=== PATIENT | male | born 1940 ===

== ENCOUNTER 2017-12-04 12:11 | Emergency (ER) | payer MEDICARE ==
[2017-12-04 12:55] VITALS: BP 148/75
[2017-12-04] MEDS ORDERED: DOXYcycline CAP(*) 100 MG PO ONE (13:12)
--- NOTE | 2017-12-04 13:12 | ED ---
Skin Complaint - HPI Summary HPI Summary: 76 y/o male presents to the urgent care c/o tick bite on his groin since this morning. tick was not engorged. he removed tick and now he has a midl red rash. Pt denies Hx of tick bites. Pt denies fever, PEREZ, SOB, chest pain, abdominal pain, Joint pains, N/v/D - History of Current Complaint Chief Complaint: UCSkin Time Seen by Provider: 12/04/17 13:10 Stated Complaint: TICK Hx Obtained From: Patient Onset/Duration: Started Hours Ago - hrs, Still Present Skin Exposure Onset/Duration: Hours Ago - 4 Timing: Constant Onset Severity: Mild Current Severity: Mild Pain Intensity: 0 Pain Scale Used: 0-10 Numeric Skin Location: Other: - groin Character: Pruritus, Redness Aggravating Symptom(s): Touch Alleviating Symptom(s): Other: - tick removable Associated Signs & Symptoms: Rash Related History: Possible Reaction to: Insect - Allergy/Home Medications Allergies/Adverse Reactions: Allergies Allergy/AdvReac Type Severity Reaction Status Date / Time No Known Allergies Allergy Verified 12/04/17 12:51 Home Medications: Home Medications Aspirin [Adult Aspirin] 81 mg PO DAILY 12/04/17 [History Confirmed 12/04/17] Losartan/Hydrochlorothiazide [Losartan-Hctz 100-12.5 mg Tab] 1 each PO DAILY 12/16 [History Confirmed 12/04/17] Rosuvastatin Calcium [Crestor] 20 mg PO DAILY 12/04/17 [History Confirmed ] PMH/Surg Hx/FS Hx/Imm Hx Previously Healthy: Yes Endocrine/Hematology History: Reports: Other Endocrine/Hematological Disorders - osteoarthritis, dyslipidemia Cardiovascular History: Reports: Hx Hypertension, Other Cardiovascular Problems/ Disorders - Surgical History Surgery Procedure, Year, and Place: INGUINAL HERNIA REPAIR Infectious Disease History: No Infectious Disease History: Denies: Traveled Outside the [place] in Last 30 Days - [place] IN OCTOBER - Family History Known Family History: Positive: Hypertension - Social History Occupation: Employed Full-time Lives: With Family Alcohol Use: Rare Substance Use Type: Reports: None Smoking Status (MU): Never Smoked Tobacco Review of Systems Constitutional: Negative Eyes: Negative ENT: Negative Cardiovascular: Negative Respiratory: Negative Gastrointestinal: Negative Genitourinary: Negative Musculoskeletal: Negative Positive: Rash - tick bite in the groin Neurological: Negative Psychological: Normal All Other Systems Reviewed And Are Negative: Yes Physical Exam - Summary Physical Exam Summary: Vital Signs Reviewed: Yes General: well developed, well nourished male sitting in the examining table w/o any apparent distress. Eyes: Positive: Conjunctiva Clear - PERRLA, EOMI ENT: Positive: Normal ENT inspection, Hearing grossly normal, Pharynx normal, TMs normal Neck: Positive: Supple, Nontender, No Lymphadenopathy Respiratory: Positive: Chest nontender, Lungs clear, Normal breath sounds Cardiovascular: Positive: RRR, No Murmur, Pulses Normal Abdomen Description: Positive: Nontender, No Organomegaly, Soft. Negative: CVA Tenderness (R), CVA Tenderness (L) Bowel Sounds: Positive: Present Musculoskeletal: Positive: Strength Intact, ROM Intact, No Edema Neurological Exam: Normal Psychological Exam: Normal Skin: Positive: rashes - Proximal medial aspect of RT upper thigh w/ tick bite with surrounding erythema, non tender to palpation. tick no longer present, no swelling or drainage observed. Triage Information Reviewed: Yes Vital Signs On Initial Exam: Initial Vitals Temp Pulse Resp BP Pulse Ox 97.9 F 51 16 148/75 100 12/04/17 12:48 12/04/17 12:48 12/04/17 12:48 12/04/17 12:48 12/04/17 12:48 Diagnostics - Vital Signs Vital Signs Temp Pulse Resp BP Pulse Ox 12/04/17 12:48 97.9 F 51 16 148/75 100 - Laboratory Lab Statement: Any lab studies that have been ordered have been reviewed, and results considered in the medical decision making process. Course/Dx - Course Course Of Treatment: 76 y/o male presents to the urgent care c/o tick bite on his groin since this morning. tick was not engorged. he removed tick and now he has a midl red rash. Pt denies Hx of tick bites. Pt denies fever, PEREZ, SOB, chest pain, abdominal pain, Joint pains, N/V/D. Hx obtained. Pt Proximal medial aspect of RT upper thigh w/ tick bite with surrounding erythema, non tender to palpation. tick no longer present, no swelling or drainage observed on examination. Antibiotic prophylaxis with Doxycycline given to the patient to prevent lyme Disease.. Pt tolerated well medication. Pt advised to observe the area for the development or Erythema Migrans for upto 30 days following exposure. Advised if he develops fever or erythema Migrans to return to the clinic or PCP for further treatment .Pt's BP is elevated today advised to decrease salt in diet, monitor BP and f/u with PCP for further management.Pt understood and agreed with plan of care. - Differential Diagnoses - Skin Complaint Differential Diagnoses: Abscess, Cellulitis, MRSA, Tick Born Illness, Other - insect bite, bee sting - Diagnoses Provider Diagnoses: Tick bite, Uncontrolled hypertension Discharge - Sign-Out/Discharge Documenting (check all that apply): Discharge/Admit/Transfer - D/c home - Discharge Plan Condition: Stable Disposition: HOME Patient Education Materials: Tick Bite (ED), Low-Sodium Diet (ED) Referrals: Darren Landeros MD [Primary Care Provider] - 2 Weeks Additional Instructions: 1- Please observe the area for the development or Erythema Migrans for upto 30 days following exposure. Components of the tick saliva can cause transient erythema that should not be confused with Erythema Migrans. If you develop the bull's eye rash, fever, joint pains please return to the urgent care or f/u with your PCP for further management. 2-Antibiotic prophylaxis with Doxycycline was given to you today to prevent lyme Disease. Lyme serology can be drawn in 2 weeks with your PCP to r/o Lyme disease since there is probability of negative results at early exposure. 3-Your BP is elevated today. please decrease salt in your diet, monitor BP and if it continues to be elevated please f/u with your PCP for further management - Billing Disposition and Condition Condition: STABLE Disposition: Home
== END 2017-12-04 13:30 | disposition home or self-care (01) ==
LOC: UCCORT 12:11
DX: S30.861A Insect bite (nonvenomous) of abdominal wall, initial encounter (principal); W57.XXXA Bitten or stung by nonvenomous insect and other nonvenomous arthropods, initial encounter; Y93.9 Activity, unspecified; Y92.9 Unspecified place or not applicable; I10 Essential (primary) hypertension
CPT/HCPCS: 99212; A9270-GY; G0463